=== PATIENT | male | born 1960 | race Caucasian/White ===

== ENCOUNTER 2020-09-26 18:48 | Emergency (ER) | payer OTHER ==
[2020-09-26 19:06] VITALS: BP 136/92; PULSE 66; TEMP 99.4; BMI 24.7
== END 2020-09-26 21:22 | disposition home or self-care (01) ==
LOC: FER 18:48
DX: S63.502A Unspecified sprain of left wrist, initial encounter (principal)
CPT/HCPCS: 73110-TC-LT-FY; 99284-25

== ENCOUNTER 2021-09-07 15:35 | Emergency (ER) | payer OTHER, BC ==
[2021-09-07 15:57] VITALS: BP 158/97; PULSE 95; TEMP 99.8; BMI 23.6
[2021-09-07] MEDS ORDERED: KETOROLAC TROMETHAMINE 15 MG/ML VIAL IM ONE (17:06)
[2021-09-07] MEDS ORDERED: ACETAMINOPHEN 500 MG TABLET (FP) PO ONE (17:06)
[2021-09-07] MEDS ORDERED: KETOROLAC TROMETHAMINE 30 MG/1 ML VIAL ONE (17:15)
[2021-09-07] MEDS ORDERED: ACETAMINOPHEN 500 MG TABLET (FP) ONE (17:15)
[2021-09-07] MEDS ORDERED: LIDOCAINE 5% TOPICAL PATCH TP ONE (18:47)
[2021-09-07] MEDS ORDERED: LIDOCAINE 5% TOPICAL PATCH ONE (18:51)
[2021-09-07] MEDS ORDERED: LIDOCAINE PATCH REMOVAL MC SCH (22:00)
[2021-09-07] MEDS ORDERED: HALOPERIDOL LACTATE 5 MG/ML ONE (22:10)
[2021-09-07] MEDS ORDERED: HALOPERIDOL LACTATE 5 MG/ML IM ONE (22:23)
[2021-09-07] MEDS ORDERED: LORazepam 2 MG/ML SDV VIAL IM ONE (22:23)
== END 2021-09-07 23:35 | disposition home or self-care (01) ==
LOC: FER 15:35
PROC: 3E023NZ Introduction of Analgesics, Hypnotics, Sedatives into Muscle, Percutaneous Approach (ICD-10-PCS; principal; 2021-09-07)
DX: S16.1XXA Strain of muscle, fascia and tendon at neck level, initial encounter (principal)
CPT/HCPCS: 70450-TC; 71045-TC-FY; 72125-TC; 72170-TC-FY; 93005; 99285-25